=== PATIENT | male | born 1960 | race Caucasian/White ===

== ENCOUNTER 2022-02-22 00:32 | Emergency (ER) | payer SELFPAY ==
[2022-02-22 00:36] VITALS: BP 123/82; PULSE 84; RESP 18; TEMP 36.4; O2SAT 99; BMI 25.8
--- NOTE | 2022-02-22 00:44 | CRLHL7_ITS ---
For Patients: As a result of the Cures Act, medical imaging exams and procedure reports are released immediately into your electronic medical record. You may view this report before your referring provider. If you have questions, please contact your health care provider. INDICATION: Trauma. TECHNIQUE: CT cervical spine without contrast. COMPARISON: None. FINDINGS: Vertebrae: Alignment is normal. There are no fractures or suspicious bony lesions. There is anterior hardware fusion C4 through C7. Hardware appears in satisfactory position. Discs and facet joints: There are diffuse degenerative changes in the disc spaces and facet joints. Extraspinal findings: Paraspinous soft tissues are unremarkable. IMPRESSION: 1. No sign of acute injury. 2. Multilevel degenerative spondylosis. 3. Unremarkable hardware fusion C4-7. Please note that all CT scans at this facility use dose modulation, iterative reconstruction, and/or weight-based dosing when appropriate to reduce radiation dose to as low as reasonably achievable. Dictated by Trevor Cunningham MD @ 02/22/2022 1:51:00 AM (Electronically Signed)
--- NOTE | 2022-02-22 00:44 | CRLHL7_ITS ---
For Patients: As a result of the Cures Act, medical imaging exams and procedure reports are released immediately into your electronic medical record. You may view this report before your referring provider. If you have questions, please contact your health care provider. Indication: Trauma. Technique: Left shoulder 2 views. Comparison: None. Findings: Bones: Alignment is normal. No fractures or bone lesions. Joint spaces: Unremarkable. Soft tissues: Unremarkable. Impression: No sign of acute injury. Dictated by Trevor Cunningham MD @ 02/22/2022 1:57:40 AM (Electronically Signed)
--- NOTE | 2022-02-22 00:44 | CRLHL7_ITS ---
For Patients: As a result of the Century Cures Act, medical imaging exams and procedure reports are released immediately into your electronic medical record. You may view this report before your referring provider. If you have questions, please contact your health care provider. INDICATION: Trauma. TECHNIQUE: CT head without contrast. COMPARISON: None. FINDINGS: CSF spaces: Within normal limits for age. Brain parenchyma and extra-axial spaces: The donaldson-white differentiation is normal. No sign of mass, hemorrhage, or midline shift. No extra-axial fluid collection. Skull base and calvarium: The visualized paranasal sinuses and mastoid air cells demonstrate no acute or significant findings. The visualized orbits are grossly unremarkable. No skull fractures. IMPRESSION: Unremarkable noncontrast head CT. Please note that all CT scans at this facility use dose modulation, iterative reconstruction, and/or weight-based dosing when appropriate to reduce radiation dose to as low as reasonably achievable. Dictated by Trevor Cunningham MD @ 02/22/2022 1:53:32 AM (Electronically Signed)
--- NOTE | 2022-02-22 00:46 | CRLHL7_ITS ---
For Patients: As a result of the Cures Act, medical imaging exams and procedure reports are released immediately into your electronic medical record. You may view this report before your referring provider. If you have questions, please contact your health care provider. INDICATION: Trauma. TECHNIQUE: CT maxillofacial without contrast. COMPARISON: None. FINDINGS: Facial bones: No fractures or bone lesions. Specifically the nasal bones, temporomandibular joints, maxilla and mandible appear intact. Orbits and globes: Unremarkable. Globes are intact. No sign of intraorbital hemorrhage or emphysema. Sinuses: No acute or significant findings. Soft tissues: Left periorbital soft tissue contusion. IMPRESSION: Left periorbital soft tissue contusion without fracture. Please note that all CT scans at this facility use dose modulation, iterative reconstruction, and/or weight-based dosing when appropriate to reduce radiation dose to as low as reasonably achievable. Dictated by Trevor Cunningham MD @ 02/22/2022 1:56:59 AM (Electronically Signed)
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
[2022-02-22 01:02] VITALS: TEMP 36.4
[2022-02-22] MEDS: ACETAMINOPHEN 500 MG TABLET 1000 MG PO (01:02)
[2022-02-22 01:45] VITALS: TEMP 36.4
[2022-02-22 02:08] VITALS: BP 118/70; PULSE 79; RESP 18; TEMP 36.4; O2SAT 99
[2022-02-22 02:54] VITALS: BP 118/70; PULSE 72; RESP 18; TEMP 36.4
== END 2022-02-22 02:55 | disposition home or self-care (01) ==
LOC: ED 01:12
PROVIDERS: Emergency Provider Family Medicine
DX: S01.112A Laceration without foreign body of left eyelid and periocular area, initial encounter (principal); S06.0X0A Concussion without loss of consciousness, initial encounter; Y04.2XXA Assault by strike against or bumped into by another person, initial encounter
CPT/HCPCS: 12013; 70450; 70486; 72125; 73030; 99284; 99285; A9270